=== PATIENT | male | born 1990 | race African-American/Black ===

== ENCOUNTER 2020-09-27 22:35 | Emergency (ER) | payer SELFPAY ==
[~2020-09-27] VITALS: Ht 188 cm; Wt 90.7 kg
[2020-09-27 23:00] VITALS: BP 139/91
[2020-09-28] MEDS ORDERED: KETOROLAC TROMETH 60MG/2ML VIAL IM ONE
[2020-09-28] MEDS ORDERED: BENZOCAINE (DENTAL) 20 % SPRAY 60ML MT ONE
== END 2020-09-28 00:47 | disposition home or self-care (01) ==
LOC: ER 22:35
DX: K08.89 Other specified disorders of teeth and supporting structures (principal)
CPT/HCPCS: 96372; 99283; J1885

== ENCOUNTER 2024-09-07 07:55 | Day surgery (SDC) | payer BC ==
[2024-09-06 11:50] LABS: Basophils # (auto) 0 10 ^3/uL (0-0.2); Basophils % (auto) 0.9 % (0.0-2.0); Eosinophils # (auto) 0 10 ^3/uL (0-0.8); Eosinophils % (auto) 1.3 % (0.0-7.0); Hematocrit 44.8 % (41.0-53.0); Hemoglobin 14.5 g/dL (13.5-17.5); Lymphocytes # (auto) 1.3 10 ^3/uL (0.4-5.4); Lymphocytes % (auto) 39.3 % (10.0-50.0); Mean Corpuscular Hemoglobin 27.7 pg (28.0-32.0); Mean Corpuscular Hgb Conc. 32.3 g/dL (32.0-36.0); Mean Corpuscular Volume 85.7 fL (80.0-100.0); Monocytes # (auto) 0.3 10 ^3/uL (0-1.3); Monocytes % (auto) 9.1 % (0.0-12.0); Neutrophils # (auto) 1.6 10 ^3/uL (1.6-8.6); Neutrophils % (auto) 49.4 % (37.0-80.0); Nucleated Red Blood Cells % 0.1 %; Platelet Count (auto) 188 10^3/uL (140-450); Red Blood Cells 5.23 10^6/uL (4.5-5.90); Red Cell Distribution Width 12.2 % (11.8-14.3); White Blood Cell 3.2 10^3/uL (4.4-10.8)
[2024-09-06 11:55] LABS: Urine Amorphous Crystal FEW /hpf (None Seen); Urine Bacteria FEW /hpf (None Seen); Urine Blood Negative /uL (Negative); Urine Clarity Turbid (Clear); Urine Color Light-Yellow (Yellow); Urine Mucus FEW (None Seen); Urine Protein, UAD Negative (Negative); Urine Specific Gravity 1.027 (1.001-1.035); Urine Squamous Epithelial Cell FEW /hpf (<5); Urine Urobilinogen 2 mg/dL (Negative); Urine WBC 1 /HPF (0-3)
[2024-09-06 12:07] LABS: INR 1.13 (0.9-1.15); Partial Thromboplastin Time 25.2 SEC (24.5-34.5); Prothrombin Time 11.8 sec (9.3-11.8)
[2024-09-06 12:18] LABS: Alanine Aminotransferase 26 U/L (7-40); Albumin 4.7 g/dL (3.2-4.8); Anion Gap 7 (5-15); Aspartate Aminotransferase 25 U/L (13-40); BUN/Creatinine Ratio 15.3 (10.0-20.0); Bilirubin, Total 0.6 mg/dL (0.2-1.0); Blood Urea Nitrogen 15 mg/dL (9-23); Calcium 10.1 mg/dL (8.7-10.4); Carbon Dioxide 30 mmol/L (20-31); Chloride 101 mmol/L (98-107); Glucose 96 mg/dL (74-106); Potassium 4.1 mmol/L (3.5-5.1); Sodium 138 mmol/L (136-145); Total Protein 7.5 g/dL (5.7-8.2)
[2024-09-06 12:26] LABS: Alkaline Phosphatase 44 U/L (46-116)
[~2024-09-07] VITALS: Ht 185.4 cm; Wt 93.9 kg
[2024-09-07] MEDS ORDERED: ACETAMINOPHEN IV 1000 MG/100ML (10MG/ML) IV ONE (08:00)
[2024-09-07] MEDS ORDERED: ceFAZolin 2 GM/D5W100ml 100 ML IV ONE (08:10)
[2024-09-07] MEDS ORDERED: BACITRACIN TOP OINT 1 UD PKG TOP ONE (08:13)
[2024-09-07] MEDS ORDERED: ACETAMINOPHEN IV 100 ML IV ONE (08:33)
[2024-09-07] MEDS ORDERED: LIDOCAINE 1% INJ PF 5ML AMP ONE (08:39)
[2024-09-07] MEDS ORDERED: KETAMINE 50mg/ML 1ml syringe ONE (08:39)
[2024-09-07] MEDS ORDERED: ONDANSETRON HCL 4 MG/2 ML VIAL ONE (08:39)
[2024-09-07] MEDS ORDERED: GLYCOPYRROLATE 0.2 MG/ML 1ML VIAL ONE (08:39)
[2024-09-07] MEDS ORDERED: PROPOFOL 10 MG/ML 20 ML IV ONE (08:39)
[2024-09-07] MEDS ORDERED: KETOROLAC TROMETH 30 MG/ML 1ML VIAL ONE (08:39)
[2024-09-07] MEDS ORDERED: DexAMETHasone SOD PHOS 10MG/1ML VIAL INJ ONE (08:39)
[2024-09-07] MEDS ORDERED: fentaNYL CITRATE 100 MCG/2 ML VL ONE (08:40)
[2024-09-07] MEDS ORDERED: METOCLOPRAMIDE HCL 5MG/ml INJ 2ml VIAL ONE (08:48)
[2024-09-07] MEDS: LIDOCAINE W/ EPINEPHRINE 1% 20ML VIAL ONE (08:59)
--- NOTE | 2024-09-07 09:10 | DVHDS2 ---
New Physician D'charge PN Admitting Diagnosis Admitting Diagnosis Vasectomy consult Discharge Diagnosis Same Operations or Procedures Bilateral vasectomy Reason(s) For Hospitalization Surgery Treatment Plan Discharge Condition of Discharge Good Disposition Home Discharge Instructions Diet: Regular Activity: Light activity Activity comment: No heavy lifting or strenuous activity x1 week Medications: Given Follow Up Care Follow Up/Referral: Sperm count in two months Discharge Statement: "Patient was advised to return to the ER or call 911 if any headaches, dizziness, shortness of breath, chest pain, abdominal pain, bleeding, fevers, or worsening of medical condition. Patient was counseled about treatment plan, medications, possible side effects, patientverbalized understanding. All questions were answered to the best of my ability. This discharge took greater then 30 minutes in planning, reviewing documentation , counseling the patient, and discussing with other team members." PAULA DE LEON MD Sep 07, 2024 09:10
[2024-09-07 09:15] VITALS: TEMP 97; O2SAT 100
[2024-09-07] MEDS ORDERED: ONDANSETRON HCL 4 MG/2 ML VIAL IV PRN (09:30)
[2024-09-07] MEDS ORDERED: fentaNYL CITRATE 100 MCG/2 ML VL IV PRN (09:30)
[2024-09-07] MEDS ORDERED: NALOXONE HCL 0.4 MG/ML VIAL IV PRN (09:30)
[2024-09-07] MEDS ORDERED: hydrALAZINE HCL 20 MG/ML VL IV PRN (09:30)
[2024-09-07] MEDS ORDERED: FLUMAZENIL 0.1 MG/ML INJ 10ML MDV IV PRN (09:30)
[2024-09-07] MEDS ORDERED: ePHEDrine SULFATE 50 MG/ML AMP IV PRN (09:30)
[2024-09-07] MEDS ORDERED: oxyCODONE HCL 5MG TAB PO PRN (09:30)
[2024-09-07] MEDS ORDERED: HYDROmorphone HCL 2 MG/ML VL/or syr IV PRN (09:30)
[2024-09-07 09:45] VITALS: BP 101/67; PULSE 63; RESP 12; O2SAT 99
== END 2024-09-07 10:00 | disposition home or self-care (01) ==
LOC: SUR 07:55
PROVIDERS: ATTEND Urology
DX: Z30.2 Encounter for sterilization (principal); Z87.891 Personal history of nicotine dependence
CPT/HCPCS: 36415; 55250; 80053; 81001; 85025; 85610; 85730; 87086; J1100; J1885; J2405; J2704; J2765; J0131

== ENCOUNTER 2025-03-01 09:53 | Outpatient (CLI) | payer BC ==
[2025-03-01 10:29] LABS: Hematocrit 42.0 % (41.0-53.0); Hemoglobin 14.3 g/dL (13.5-17.5); Mean Corpuscular Hemoglobin 29.0 pg (28.0-32.0); Mean Corpuscular Volume 85.0 fL (80.0-100.0); Nucleated Red Blood Cells % 0.0 %
[2025-03-01 11:03] LABS: Alanine Aminotransferase 32 U/L (7-40); Albumin 4.4 g/dL (3.2-4.8); Anion Gap 8 (5-15); BUN/Creatinine Ratio 11.4 (10.0-20.0); Bilirubin, Total 0.6 mg/dL (0.2-1.0); Blood Urea Nitrogen 13 mg/dL (9-23); Calcium 9.1 mg/dL (8.7-10.4); Chloride 101 mmol/L (98-107); Glucose 100 mg/dL (74-106); Potassium 4.1 mmol/L (3.5-5.1); Sodium 140 mmol/L (136-145); Total Protein 6.9 g/dL (5.7-8.2)
[2025-03-01 11:05] LABS: Alkaline Phosphatase 37 U/L (46-116); Carbon Dioxide 31 mmol/L (20-31)
== END 2025-03-01 17:00 | disposition home or self-care (01) ==
LOC: LAB 09:53
PROVIDERS: ATTEND Nurse Practitioner
DX: I10 Essential (primary) hypertension (principal); E78.5 Hyperlipidemia, unspecified; R73.9 Hyperglycemia, unspecified
CPT/HCPCS: 36415; 80053; 85025

== ENCOUNTER 2025-04-18 12:18 | Outpatient (CLI) | payer BC ==
[2025-04-18 12:35] LABS: Hematocrit 45.3 % (41.0-53.0); Hemoglobin 15.0 g/dL (13.5-17.5); Mean Corpuscular Hemoglobin 28.8 pg (28.0-32.0); Mean Corpuscular Volume 86.8 fL (80.0-100.0); Nucleated Red Blood Cells % 0.1 %
== END 2025-04-19 17:00 | disposition home or self-care (01) ==
LOC: LAB 12:18
PROVIDERS: ATTEND Internal Medicine Pulmonary Disease
DX: J30.2 Other seasonal allergic rhinitis (principal)
CPT/HCPCS: 36415; 85025